=== PATIENT | female | born 1995 | race Caucasian/White ===

== ENCOUNTER 2023-01-20 14:44 | Emergency (ER) | payer MEDICAID ==
[~2023-01-20] VITALS: Ht 162.6 cm; Wt 60.3 kg
[2023-01-20 16:24] VITALS: BP 162/80; PULSE 89; RESP 20; TEMP 99.1; O2SAT 98
[2023-01-20] MEDS ORDERED: KETOROLAC 60 MG/2 ML VIAL IM ONE (17:30)
[2023-01-20] MEDS ORDERED: ATA25 PO (17:38)
[2023-01-20] MEDS ORDERED: ONDA8TAB87 PO (17:38)
[2023-01-20] MEDS ORDERED: IBUP-2213 PO (17:38)
[2023-01-20 18:24] VITALS: BP 135/86; PULSE 62; RESP 20; TEMP 36.66960; O2SAT 98
== END 2023-01-20 18:24 | disposition home or self-care (01) ==
LOC: MED 14:44
DX: R07.89 Other chest pain (principal); F41.9 Anxiety disorder, unspecified; R10.12 Left upper quadrant pain; R06.02 Shortness of breath; R11.0 Nausea
CPT/HCPCS: 93005; 96372; 99283; J1885